=== PATIENT | male | born 1965 | race Caucasian/White ===

== ENCOUNTER → 2023-07-08 09:13 | Outpatient (REF) | payer BC, SELFPAY | LOC: RCS 09:13 | PROVIDERS: ATTENDING PHYSICIAN Nurse Practitioner; FAMILY PHYSICIAN Registered Nurse | DX: R06.09 Other forms of dyspnea (principal); I10 Essential (primary) hypertension; Z82.49 Family history of ischemic heart disease and other diseases of the circulatory system | CPT/HCPCS: 93017; 93350 ==

== ENCOUNTER → 2023-07-15 08:16 | Outpatient (REF) | payer BC, SELFPAY | LOC: DHCBC MAIN 08:16 | PROVIDERS: ATTENDING PHYSICIAN Nurse Practitioner; FAMILY PHYSICIAN Registered Nurse | DX: R06.09 Other forms of dyspnea (principal); I10 Essential (primary) hypertension | CPT/HCPCS: 93306 ==